=== PATIENT | female | born 1940 | race Caucasian/White ===

== ENCOUNTER → 2018-07-11 09:00 | Outpatient (REF) | payer MEDICARE, SELFPAY ==
[2018-07-12 09:43] LABS: Color, Urine Yellow (Yellow); Glucose, Dipstick Normal (Normal); Ketone-Dipstick Negative (Negative); Leukocyte Esterase-Dipstick 500 /ul (Negative); Nitrite-Dipstick Negative (Negative); Occult Blood-Urine 25 /ul (Negative); Protein-Dipstick 100 mg/dl (Negative); Urine Bilirubin Dipstick Negative (Negative); Urine Clarity Cloudy (Clear); Urine Urobilinogen Normal (Normal)
== END ==
LOC: OLS.ACW400 09:00
PROVIDERS: Visit Provider Internal Medicine
DX: I10 Essential (primary) hypertension (principal); F02.81 Dementia in other diseases classified elsewhere, unspecified severity, with behavioral disturbance; R26.81 Unsteadiness on feet; R27.9 Unspecified lack of coordination; G60.9 Hereditary and idiopathic neuropathy, unspecified
CPT/HCPCS: 81002; 87077; 87086; 87088; 87186